=== PATIENT | female | born 1955 | race Caucasian/White ===

== ENCOUNTER 2017-01-10 19:07 | Emergency (ER) | payer BC ==
[~2017-01-10] VITALS: Ht 157.5 cm; Wt 65.0 kg
[~2017-01-10 19:07] MED LIST: ADULT LOW DOSE81 M1 PO; ASPIRIN E.C.81 M1 PO; ASPIRIN325 MG PO; ATORVASTATIN CA40 MG PO; CALTRATE 600+D1 EAC1 PO; ENDOCET 5-3251 EACH PO; ESTROVEN JOINT1 EACH PO; GLUCOPHAGE500 MG PO; HABITROL,NICODE21 MG TD; MULTIVITAMIN1 EAC1 PO; PANTOPRAZOLE SO40 MG PO; PLAVIX75 MG PO; PRAVASTATIN SOD20 MG PO; Pravachol PO; VITAMIN B-12500 MC2 PO; VITAMIN B-650 MG PO; VITAMIN D31000 UNI2 PO; Zocor PO
[2017-01-10] MEDS ORDERED: ULTRAM50 MG PO (21:21)
[2017-01-10] MEDS ORDERED: PERCOCET 5/31 TABLET PO (21:21)
[2017-01-10 22:39] VITALS: BP 135/79
== END 2017-01-10 22:40 | disposition home or self-care (01) ==
LOC: EXP 19:07 → EME 19:07 → EXP 22:40
DX: S70.02XA Contusion of left hip, initial encounter (principal); S73.102A Unspecified sprain of left hip, initial encounter; W18.30XA Fall on same level, unspecified, initial encounter; Z86.73 Personal history of transient ischemic attack (TIA), and cerebral infarction without residual deficits; Z79.02 Long term (current) use of antithrombotics/antiplatelets
CPT/HCPCS: 73502; 99281; 99284